=== PATIENT | male | born 1960 | race Caucasian/White ===

== ENCOUNTER 2020-02-19 19:52 | Emergency (ER) | payer SELFPAY ==
[~2020-02-19] VITALS: Ht 177.8 cm; Wt 81.6 kg
[2020-02-19] MEDS ORDERED: LIPITOR20 MG PO (20:07)
[2020-02-19] MEDS ORDERED: MIRTAZAPINE30 MG PO (20:08)
[2020-02-19] MEDS ORDERED: LOSARTAN POTASS25 MG PO (20:09)
== END 2020-02-19 21:46 | disposition left against medical advice (07) ==
LOC: ED 19:52
DX: Z53.21 Procedure and treatment not carried out due to patient leaving prior to being seen by health care provider (principal)